=== PATIENT | male | born 1945 | race Caucasian/White ===

== ENCOUNTER → 2024-10-11 09:02 | Outpatient (REF) | payer MEDICARE, OTHER, SELFPAY | LOC: REG 09:02 | PROVIDERS: ATTENDING PHYSICIAN Family Medicine | DX: M54.16 Radiculopathy, lumbar region (principal) | CPT/HCPCS: 72110 ==

== ENCOUNTER → 2024-12-02 14:27 | Outpatient (REF) | payer MEDICARE, OTHER, SELFPAY | LOC: RAD 14:27 | PROVIDERS: ATTENDING PHYSICIAN Radiology Diagnostic Radiology; FAMILY PHYSICIAN Family Medicine | DX: Z13.89 Encounter for screening for other disorder (principal) | CPT/HCPCS: 70030 ==

== ENCOUNTER → 2024-12-03 08:24 | Outpatient (REF) | payer MEDICARE, OTHER, SELFPAY | LOC: PAVMRI 08:24 | PROVIDERS: ATTENDING PHYSICIAN Family Medicine | DX: M54.16 Radiculopathy, lumbar region (principal) | CPT/HCPCS: 72148 ==

== ENCOUNTER → 2024-12-07 09:55 | Outpatient (REF) | payer MEDICARE, OTHER, SELFPAY | LOC: RAD 09:55 | PROVIDERS: ATTENDING PHYSICIAN Family Medicine | DX: R93.89 Abnormal findings on diagnostic imaging of other specified body structures (principal) | CPT/HCPCS: 71260; 74177; Q9967 ==

== ENCOUNTER 2024-12-29 06:21 | Day surgery (SDC) | payer MEDICARE, OTHER, SELFPAY | END 2024-12-29 14:46 | disposition home or self-care (01) | LOC: GI 06:21 | PROVIDERS: ATTENDING PHYSICIAN Specialist | DX: R93.3 Abnormal findings on diagnostic imaging of other parts of digestive tract (principal); K64.8 Other hemorrhoids; K63.89 Other specified diseases of intestine; R13.10 Dysphagia, unspecified; R12 Heartburn; K31.89 Other diseases of stomach and duodenum; K29.50 Unspecified chronic gastritis without bleeding; K20.90 Esophagitis, unspecified without bleeding | CPT/HCPCS: 45380; 43239; 88305; 88342 ==

== ENCOUNTER → 2025-01-12 08:21 | Outpatient (REF) | payer MEDICARE, OTHER, SELFPAY ==
[2025-01-12 09:00] VITALS: BP 134/101; BP_SYST 74
[2025-01-12] MEDS: ANCEF 10 IV (09:43)
[2025-01-12 10:43] VITALS: BP 133/70; BP_SYST 67
[2025-01-12 10:51] VITALS: BP 122/82
== END ==
LOC: RADI 08:21
PROVIDERS: ATTENDING PHYSICIAN Internal Medicine Hematology & Oncology; REFERRING PHYSICIAN Student in an Organized Health Care Education/Training Program
DX: C78.7 Secondary malignant neoplasm of liver and intrahepatic bile duct (principal); C80.1 Malignant (primary) neoplasm, unspecified
CPT/HCPCS: 36561; 76937; 77001; 99152; 99153; C1788